=== PATIENT | female | born 1970 | race Two or more races ===

== ENCOUNTER 2023-02-09 09:50 | Emergency (ER) | payer MEDICAID, OTHER ==
[~2023-02-09] VITALS: Ht 149.9 cm; Wt 61.3 kg
[2023-02-09] MEDS ORDERED: ACETAMINOPHEN 500 MG TAB PO ONE (10:15)
[2023-02-09 11:08] VITALS: BP 143/89; PULSE 90; RESP 18; TEMP 100.4; O2SAT 99
[2023-02-09 11:08] LABS: COVID19 ANTIGEN SOFIA FIA NEGATIVE (NEGATIVE); Rapid Influenza B Negative (Negative)
[2023-02-09 11:10] LABS: Rapid Influenza A Positive (Negative)
[2023-02-09] MEDS ORDERED: OSEL75CA5 PO (11:58)
[2023-02-09] MEDS ORDERED: ACET500T58 PO (11:58)
== END 2023-02-09 11:58 | disposition home or self-care (01) ==
LOC: ER 09:50
DX: J10.1 Influenza due to other identified influenza virus with other respiratory manifestations (principal); Z20.822 Contact with and (suspected) exposure to COVID-19
CPT/HCPCS: 36415; 87426; 87804